=== PATIENT | male | born 1965 | race Native Hawaiian/Other Pacific Islander ===

== ENCOUNTER 2022-10-04 22:01 | Emergency (ER) | payer OTHER ==
[~2022-10-04] VITALS: Ht 162.6 cm; Wt 113.4 kg
[2022-10-04 22:15] VITALS: BP 135/81; TEMP 100.9
== END 2022-10-05 01:08 | disposition home or self-care (01) ==
LOC: ED 22:01
DX: B34.9 Viral infection, unspecified (principal)
CPT/HCPCS: 87502; 87651; 99282